=== PATIENT | male | born 1985 | race Caucasian/White ===

== ENCOUNTER 2022-05-10 20:30 | Emergency (ER) | payer OTHER ==
[2022-05-10 20:52] VITALS: BP 101/67; PULSE 72; TEMP 98.8; BMI 21.6
[2022-05-10 21:38] LABS: BASO % 0.2 % (0-2.0); HEMATOCRIT 45.5 % (35.4-49); HEMOGLOBIN 15.5 GM/dL (11.7-16.9); LYMPH % 8.7 % (8-40); MCH 30.1 pg (25.7-33.7); MCHC 34.2 g/dl (32.0-35.9); MEAN CELL VOLUME 88.1 fl (80-96); MEAN PLT VOLUME 9.7 fl (7.5-11.1); MONO % 11.6 % (3.8-10.2); NEUT % 79.5 % (42.8-82.8); PLATELET COUNT 138 10^3/uL (134-434); RBC 5.16 M/mm3 (4.00-5.60); RDW 12.7 % (11.9-15.9); WHITE BLOOD COUNT 6.4 K/mm3 (4.0-10.0)
[2022-05-10 21:45] LABS: ALBUMIN 4.7 g/dl (3.4-5.0); BLOOD UREA NITROGEN 9.2 mg/dL (7-18)
[2022-05-10 21:47] LABS: CREATININE 0.9 mg/dL (0.55-1.3)
[2022-05-10 21:49] LABS: BILIRUBIN,TOTAL 0.6 mg/dL (0.2-1); TOT PROT 7.8 g/dl (6.4-8.2)
== END 2022-05-10 22:04 | disposition home or self-care (01) ==
LOC: JER 20:30
DX: U07.1 COVID-19 (principal)
CPT/HCPCS: 0241U-QW; 36415; 80053; 85025; 93005; 93010; 99284-25